=== PATIENT | female | born 1965 | race Caucasian/White ===

== ENCOUNTER 2017-04-15 14:34 | Observation (INO) | payer BC, OTHER ==
[2017-04-15] MEDS ORDERED: ONDANSETRON 4 MG/2 ML VIAL IVP ONE (15:09)
[2017-04-15] MEDS ORDERED: HYDROmorphONE/DILAUDID 1 MG/ML INJ IVP ONE (15:09)
--- NOTE | 2017-04-15 15:17 | EDPHY ---
H & P Time Seen by Provider: 04/15/17 14:46 HPI/ROS: CHIEF COMPLAINT: Left arm pain HISTORY OF PRESENT ILLNESS: This 51-year-old woman is transfer from [facility]. She has a history of CLL and has implanted ports in her legs through which she gets IVIG. She had 2 heart attacks in February which she describes as a result of getting continuous epinephrine infusions for her anaphylaxis to IVIG. She had ischemic stroke and had CVA in February with left- sided paralysis. She tells me she had a clot in her left arm and February but can't fully clarifying for me whether it was venous or arterial. She is on Coumadin and has factor 5 Leiden in addition to her CLL. She also has a pacemaker for neurocardiogenic syncope. She is visiting her daughter and lives in [place] and gets all of her care at the [facility]. She tells me that since Tuesday of this week she started having aching in her left arm. It exists from her hand all the way up to her shoulder and is associated with feeling cold and numb and having decreased motor function. Symptoms today were more severe and she had taken Percocet and was advised by her doctor to go to the hospital for evaluation. She was seen at [facility] and transferred here for further evaluation. Symptoms not associated with chest pain or shortness of breath. Not associated with recent trauma or injury to the arm. She apparently has an SVC clot is being treated with Coumadin. REVIEW OF SYSTEMS: Eye: no change in vision ENT: no sore throat Cardiac: no chest pain or syncope. The patient had negative coronary angiography when she had her heart attack Pulmonary: no cough or SOB Abdomen: no vomiting, diarrhea, abdominal pain Musculoskeletal: HPI Skin: no rash Neuro: no headache, has residual left-sided weakness from her previous stroke. Constitutional: no fever : no urinary symptoms A comprehensive 10 point review of systems is otherwise negative aside from elements mentioned in the history of present illness. PAST MEDICAL HISTORY: Hysterectomy, cholecystectomy, appendectomy, pacemaker, anaphylaxis, CLL, factor 5 Leiden, neurocardiogenic syncope, asthma, bilateral Vortex ports in her legs for IVIG infusions Social history: Visiting her daughter, from [place] General Appearance: Alert and conversant, cooperative. Eyes: No scleral icterus. ENT, Mouth: Normal mucous membranes. Respiratory: Normal respiratory effort, breath sounds equal, lungs are clear to auscultation. Cardiovascular: Regular rate and rhythm. No murmurs. She has 2+ radial pulses in both wrists. Gastrointestinal: Abdomen is soft and non tender. Neurological: Alert, cooperative, conversant, face symmetric. She can pull down her leg anxiety and pulled yhem back up using both arms so I can see her leg ports. 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 Skin: Warm and dry, no rashes. The left arm is not cool to the touch. The arm does not have discoloration. Musculoskeletal: No bony tenderness in left her right arm. Compartments are soft in both arms. No deformity. Psychiatric: Not agitated. Emergency Department course/MDM: Dilaudid 1 mg IV for pain. Plan for CT angiography of her aorta and upper extremity as well as ultrasound of the left upper extremity. Plan for admission for further evaluation treatment of this complicated patient. 1515: US per Jeremias negative for acute DVT in left arm. 1700: Results discussed with patient and family. Angiogram negative per Dr. Gannon for arterial occlusion in the left upper extremity. Pain is adequately controlled. Plan for admission and Neurology consultation. Considered alternative diagnosis including but not limited to cervical or thoracic spinal stenosis or epidural hematoma. However with pacemaker not able to emergently perform MRI. 1708: Discussed with Kandi and Mari Osorio, who will both see the patient tonight. 1725: Devon here in ED. Smoking Status: Never smoked Constitutional: Initial Vital Signs Temperature (C) 36.4 C 04/15/17 14:37 Heart Rate 82 04/15/17 14:37 Respiratory Rate 18 04/15/17 14:37 Blood Pressure 120/87 H 04/15/17 14:37 O2 Sat (%) 97 04/15/17 14:37 O2 Delivery Mode Nasal Cannula O2 (L/minute) 2 Allergies/Adverse Reactions: acetaminophen [From Vicodin] Allergy (Verified 04/15/17 14:40) apple Allergy (Verified 04/15/17 14:40) banana Allergy (Verified 04/15/17 14:40) cephalexin [From Keflex] Allergy (Verified 04/15/17 14:40) hydrocodone [From Vicodin] Allergy (Verified 04/15/17 14:40) latex Allergy (Verified 04/15/17 14:40) metronidazole [From Flagyl] Allergy (Verified 04/15/17 14:40) Sulfa (Sulfonamide Antibiotics) Allergy (Verified 04/15/17 14:40) sulfamethoxazole [From Bactrim] Allergy (Verified 04/15/17 14:40) trimethoprim [From Bactrim] Allergy (Verified 04/15/17 14:40) avacados Allergy (Uncoded 04/15/17 14:40) IVIG Allergy (Uncoded 04/15/17 14:40) Home Medications: Medication Instructions Recorded Albuterol [Proventil Inhaler HFA 1 - 2 puffs IH Q4H PRN 04/15/17 (*)] Benzonatate 200 mg PO DAILY PRN 04/15/17 CYCLOBENZAPRINE HCL [Flexeril] 5 mg PO Q6 PRN 04/15/17 Clopidogrel Bisulfate [Plavix (*)] 75 mg PO HS 04/15/17 Docusate Sodium [Colace 100 MG (*)] 100 mg PO DAILY PRN 04/15/17 EPINEPHRINE [EPIPEN] 0.3 mg SQ ONCE PRN 04/15/17 Fluticasone/Salmeter 250/50Mcg 1 puffs IH BID PRN 04/15/17 [Advair 250/50 (*)] Furosemide [Lasix 40 MG (*)] 40 mg PO DAILY 04/15/17 Herbals/Supplements -Info Only 1 ea PO HS 04/15/17 LORazepam [Ativan (*)] 1 mg PO DAILY 04/15/17 LORazepam [Ativan (*)] 2 mg PO HS 04/15/17 Levothyroxine [Synthroid 112 mcg 112 mcg PO DAILY06 04/15/17 (*)] Losartan Potassium [Cozaar 50 mg 50 mg PO DAILY 04/15/17 (*)] Montelukast Sodium [Singulair 10 10 mg PO HS 04/15/17 mg (*)] Ondansetron Odt [Zofran Odt 4 mg 4 - 8 mg PO Q4 PRN 04/15/17 (*)] Sennosides [Senokot] 8.6 mg PO Q12 PRN 04/15/17 Warfarin Sodium [Coumadin 1MG (*)] 2 mg PO MOTUWEFR 12/29/17 Warfarin Sodium [Coumadin 5MG (*)] 5 mg PO HS 04/15/17 diphenhydrAMINE [Benadryl 25 MG 25 mg PO DAILY 04/15/17 (*)] oxyCODONE/APAP 5/325 [Percocet 1 - 2 tab PO Q6H PRN 04/15/17 5/325 (*)] rOPINIRole HCL [Requip] 3 mg PO HS 04/15/17 traMADol [Ultram 50 mg (*)] 50 mg PO Q4 PRN 04/15/17 traZODone [traZODONE 100MG (*)] 100 mg PO HS 04/15/17 valACYclovir [Valtrex (*)] 1,000 mg PO DAILY PRN 04/15/17 Medical Decision Making - Diagnostics EKG Interpretation: 12-lead EKG interpreted by me; official reading is in trace master. My interpretation is atrial paced rhythm at rate of 81 with left axis. Imaging Results: Imaging Impressions Extremity Venous Study 04/15/17 15:08 Impression: 1. Echogenic material which appears adherent to an indwelling pacemaker lead in the left subclavian vein may represent lead-associated nonocclusive thrombus. 2. Decreased pulsatility of flow within the left internal jugular and brachycephalic veins is of uncertain clinical significance but may indicate a more central stenosis. Dr. Mcdowell discussed these findings by telephone with HOLLEY GLOVER on 2016 at 16:17. Differential Diagnosis: Differential for left arm pain considered including but not limited to arterial occlusion, DVT, aortic dissection, neurologic peripheral neuropathy, ischemic stroke, fracture, infection, compartment syndrome. - Data Points Laboratory Results: Laboratory Results 04/15/17 15:18 04/15/17 15:18 04/15/17 04/15/17 04/15/17 15:18 15:18 15:18 WBC 6.17 10^3/uL 10^3/uL (3.80-9.50) RBC 4.07 10^6/uL L 10^6/uL (4.18-5.33) Hgb 10.8 g/dL L g/dL (12.6-16.3) POC Hgb Hct 31.9 % L % (38.0-47.0) POC Hct MCV 78.4 fL L fL (81.5-99.8) MCH 26.5 pg L pg (27.9-34.1) MCHC 33.9 g/dL g/dL (32.4-36.7) RDW 14.5 % % (11.5-15.2) Plt Count 219 10^3/uL 10^3/uL (150-400) MPV 12.0 fL H fL (8.7-11.7) Neut % (Auto) 66.6 % % (39.3-74.2) Lymph % (Auto) 22.4 % % (15.0-45.0) Buchanan % (Auto) 6.6 % % (4.5-13.0) Eos % (Auto) 3.6 % % (0.6-7.6) Baso % (Auto) 0.6 % % (0.3-1.7) Nucleat RBC Rel Count 0.0 % % (0.0-0.2) Absolute Neuts (auto) 4.11 10^3/uL 10^3/uL (1.70-6.50) Absolute Lymphs (auto) 1.38 10^3/uL 10^3/uL (1.00-3.00) Absolute Monos (auto) 0.41 10^3/uL 10^3/uL (0.30-0.80) Absolute Eos (auto) 0.22 10^3/uL 10^3/uL (0.03-0.40) Absolute Basos (auto) 0.04 10^3/uL 10^3/uL (0.02-0.10) Absolute Nucleated RBC 0.00 10^3/uL 10^3/uL (0-0.01) Immature Gran % 0.2 % % (0.0-1.1) Immature Gran # 0.01 10^3/uL 10^3/uL (0.00-0.10) PT 24.1 SEC H SEC (12.0-15.0) INR 2.16 H (0.83-1.16) APTT 32.1 SEC SEC (23.0-38.0) POC Sodium Sodium 142 mEq/L mEq/L (134-144) POC Potassium Potassium 3.6 mEq/L mEq/L (3.5-5.2) POC Chloride Chloride 103 mEq/L mEq/L (97-110) Carbon Dioxide 23 mEq/l mEq/l (22-31) Anion Gap 16 mEq/L mEq/L (8-16) POC BUN BUN 15 mg/dL mg/dL (7-23) Creatinine 0.8 mg/dL mg/dL (0.6-1.0) POC Creatinine Estimated GFR > 60 Glucose 123 mg/dL H mg/dL (70-100) POC Glucose Calcium 10.4 mg/dL mg/dL (8.5-10.4) Troponin I < 0.012 ng/mL ng/mL (0.000-0.034) 04/15/17 15:15 WBC RBC Hgb POC Hgb 11.2 gm/dL L gm/dL (12.6-16.3) Hct POC Hct 33 % L % (38-47) MCV MCH MCHC RDW Plt Count MPV Neut % (Auto) Lymph % (Auto) Buchanan % (Auto) Eos % (Auto) Baso % (Auto) Nucleat RBC Rel Count Absolute Neuts (auto) Absolute Lymphs (auto) Absolute Monos (auto) Absolute Eos (auto) Absolute Basos (auto) Absolute Nucleated RBC Immature Gran % Immature Gran # PT INR APTT POC Sodium 141 mEq/L mEq/L (134-144) Sodium POC Potassium 3.3 mEq/L mEq/L (3.3-5.0) Potassium POC Chloride 102 mEq/L mEq/L (97-110) Chloride Carbon Dioxide Anion Gap POC BUN 16 mg/dL mg/dL (7-23) BUN Creatinine POC Creatinine 0.9 mg/dL mg/dL (0.6-1.0) Estimated GFR Glucose POC Glucose 127 mg/dL H mg/dL (70-100) Calcium Troponin I Medications Given: Discontinued Medications Hydromorphone HCl (Dilaudid) 1 mg IVP EDNOW ONE Stop: 04/15/17 15:10 Last Admin: 04/15/17 15:22 Dose: 1 mg Ondansetron HCl (Zofran) 4 mg IVP EDNOW ONE Stop: 04/15/17 15:10 Last Admin: 04/15/17 15:20 Dose: 4 mg Promethazine HCl (Phenergan) 6.25 mg IVP EDNOW ONE Stop: 04/15/17 16:26 Last Admin: 04/15/17 16:30 Dose: 6.25 mg Point of Care Test Results: 04/15/17 15:15 POC Sodium 141 POC Potassium 3.3 POC Chloride 102 POC BUN 16 POC Creatinine 0.9 POC Glucose 127 H Departure - Departure Disposition: [facility] Inpatient Acute Clinical Impression: Left arm pain Condition: Good Referrals: SERGEY NICOLAS [Other] - As per Instructions
--- NOTE | 2017-04-15 15:26 | CPEKG ---
Heart Rate: 81 RR Interval: 741 P-R Interval: 160 QRSD Interval: 92 QT Interval: 392 QTC Interval: 455 P Willcox: 60 QRS Willcox: -24 T Wave Willcox: 12 EKG Severity - ABNORMAL ECG - EKG Impression: ATRIAL-PACED COMPLEXES EKG Impression: BORDERLINE LEFT AXIS DEVIATION Electronically Signed By: Frederic Sanders 15-Apr-2017 15:29:45
[2017-04-15 15:28] LABS: PLATELET COUNT 219 10^3/uL (150-400)
[2017-04-15] MEDS ORDERED: IOPAMIDOL (ISOVUE 370) 100 ML BTL IV ONE (15:46)
[2017-04-15 15:49] LABS: INR 2.16 (0.83-1.16); PROTIME(PATIENT) 24.1 SEC (12.0-15.0)
[2017-04-15] MEDS ORDERED: PROMETHAZINE HCL 25 MG/ML INJ ONE (16:25)
[2017-04-15] MEDS ORDERED: PROMETHAZINE HCL 25 MG/ML INJ IVP ONE (16:25)
--- NOTE | 2017-04-15 18:38 | GCON ---
[f rep st] CONSULTATION NEUROLOGIC CONSULTATION REFERRING PHYSICIAN: Frederic Sanders MD The patient will be admitted to observation status under Steve Chau MD. HISTORY: The patient is a 51-year-old woman who has an extremely complex history dating back many ye ars. She has a history of neurocardiogenic syncope for which she says she got a pacemaker some 10 ye ars ago because she could not tolerate medications due to severe reactions and history of recurrent a naphylactic reactions. About 8 years ago, she was diagnosed with CLL and could not tolerate most of the treatment she says. After many attempts at different therapies, she is currently receiving inter mittent treatments with plasmapheresis and is due for her next treatment in another week. She lives in [place] and that is where all of her care is. She has a history of recurrent TIAs. 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 That settled down. However, she says that in the last 48 hours she has had rather intractable pain in the left arm. It has fluctuated a bit, but has been extreme pain with tea rfulness and needing to try to pace around to tolerate it. The original pain 3 weeks ago was a hyper sensitivity syndrome. That seems to be a bit less now and when it comes on, it is more of a diffuse aching intense pain. She has received some Dilaudid here and that has cut the pain down significantl y to what she called a moderate level. She was not on any other treatment for it. She has had a wor kup that does not reveal any evidence of a clot in that arm. She had developed a DVT in the left upp er extremity a month ago and is on Coumadin. She has had previous ports. She said she had a myocard ial infarction within a week of the stroke. She has not noted any prominent headache. No change in her left lower extremity or her face. No vis ual disturbances. PAST MEDICAL HISTORY: As outlined above. She also has a history of Factor V Leiden mutation. There is a prior history of appendectomy and the pacemaker placed in the setting of neurocardiogenic synco pe. Asthma. She has bilateral Vortex ports in her legs for her plasmapheresis. She says she could not tolerate IVIG in the past. PHYSICAL EXAMINATION: VITAL SIGNS: The patient is alert with a pulse of 82, temperature 36.4, blood pressure 120/87, respiratory rate 18. GENERAL: She is well developed, in no acute distress. No ra sh or swelling of the left upper extremity. NEUROLOGIC: The patient is fully oriented with no obvio us cognitive impairment. Pupils are 2 mm and reactive. Extraocular movements are intact. No visual field loss. Extraocular movements are intact. Normal facial sensation and strength. Motor exam re veals variable degrees of effort in testing, making it hard to know precisely her degree of weakness, but it is in the 4/5 range on the left side and better on the right. Sensation is diminished throug hout the left upper extremity for all modalities, but she does not have allodynia. The reflexes are hypoactive throughout with no Babinski signs. She has had an ultrasound of the left upper extremity and does not see any evidence of a significant thrombus. There was some description of echogenic material adherent to the indwelling pacemaker lead in the left subclavian vein which might represent some lead associated nonocclusive thrombus. There was decreased pulsatility of flow within the left internal jugular and brachiocephalic veins of unce rtain clinical significance. The patient says that she has some vena caval thrombus, but they have j ust been monitoring that. IMPRESSION: The patient most likely is experiencing a central pain syndrome from her reported stroke about a month ago. Interestingly, I asked if they actually visualized a stroke and she said they co uld not see it and they had a hard time actually seeing strokes in the past. She cannot get an MRI b ecause of the pacemaker, so small ischemic changes might be missed by CT. I am suspecting this was p robably a right thalamic event the way she describes the left-sided findings of face, arm and leg and the central pain syndrome, but I do not know that to be true other than just a theory. In any case, she is doing better now. I do not think she has a new stroke. I do not think she needs brain imagi ng to be repeated. As I am examining her, she says really the weakness is not any worse than it was, but it is the pain that is limiting her mobility and it is significantly better after her IV pain me dicine. I am recommending we add gabapentin which she says she has safely taken in the past. I will start her on 300 mg b.i.d. She will likely be able to be discharged within 24 hours and head back t [facility] where she is getting all the rest of her care. Total unit time of 70 minutes. /[id number]/MODL
[2017-04-15] MEDS ORDERED: ONDANSETRON DISINTEGRATING 4 MG TAB PO PRN (20:33)
[2017-04-15] MEDS ORDERED: oxyCODONE IR 5 MG TAB PO PRN (20:33)
[2017-04-15] MEDS ORDERED: ONDANSETRON 4 MG/2 ML VIAL IVP PRN (20:33)
[2017-04-15] MEDS ORDERED: ACETAMINOPHEN 325 MG TAB PO PRN (20:33)
[2017-04-15] MEDS: OXYCODONE/APAP 5/325 TAB PO PRN (20:55)
[2017-04-15] MEDS: GABAPENTIN 300 MG CAP PO SCH (20:55)
[2017-04-15] MEDS ORDERED: CLOPIDOGREL BISULFATE 75 MG TAB PO SCH (21:00)
[2017-04-15] MEDS ORDERED: traZODone 100 MG TAB PO SCH (21:00)
[2017-04-15] MEDS ORDERED: LORazepam 1 MG TAB PO SCH (21:00)
[2017-04-15] MEDS ORDERED: WARFARIN SODIUM 5 MG TAB PO SCH (21:00)
[2017-04-15] MEDS ORDERED: MONTELUKAST SODIUM 10 MG TAB PO SCH (21:00)
[2017-04-15] MEDS ORDERED: ALBUTEROL 200 PUFFS/18 GM MDI IH PRN (21:09)
[2017-04-15] MEDS ORDERED: valACYclovir 500 MG TAB PO PRN (21:09)
[2017-04-15] MEDS ORDERED: traMADol 50 MG TAB PO PRN (21:09)
[2017-04-15] MEDS ORDERED: FLUTICASONE/SALMETER 250/50MCG DISKUS IH PRN (21:09)
--- NOTE | 2017-04-15 21:14 | GHP ---
[f rep st] HISTORY AND PHYSICAL DATE OF ADMISSION: 04/15/2017 CHIEF COMPLAINT: Left arm pain. HISTORY OF PRESENT ILLNESS: This is a 51-year-old female with a complicated medical history. She lorenzo s a history of CLL and gets plasmapheresis through groin ports on a regular basis. She also has a hi story of TIAs and then suffered a stroke several weeks ago. That stroke affected her left side and c auses a significant amount of pain in her leg and arm. However, this improved. She is visiting from [place], [place], and was up at [place] for the last several days. She has been over exerting hersel f to certain extent. Over the last couple days, she has had worsening left arm pain which is the lopez e in character as her stroke pain but much more severe. She called her primary care doctor who told her that she needed to rule out an arterial clot since she has had those in the past. She has receiv ed several doses of Dilaudid and her pain is a little bit better. She is not having any chest pain. No fevers or chills. No headache. REVIEW OF SYSTEMS: A 10-point review of systems was obtained and other than as stated was negative. PAST MEDICAL HISTORY: 1. Previous TIA and recent stroke affecting her left side. 2. History of factor V Leiden mutation with several different types of clots including a recent SVC clot. 3. CLL with plasmapheresis. 4. History of neurocardiogenic syncope in which she has a pacemaker. 5. History of takotsubo cardiomyopathy as well as ischemic cardiomyopathy. 6. Asthma. 7. Appendectomy. SOCIAL HISTORY: No smoking or alcohol. Lives in [place] with her . Her daughter is an oncolo gy nurse up at [place]. FAMILY HISTORY: Multiple family members with clotting disorder as well as stroke. PHYSICAL EXAMINATION: VITAL SIGNS: Afebrile, blood pressure is 113/76, heart rate 80, oxygen satura tion 96% on 2 L. GENERAL: No apparent distress. HEENT: Nonicteric sclerae. Extraocular movements in tact. Moist mucous membranes. NECK: Supple. No thyromegaly. LUNGS: Good effort. Clear to auscu ltation bilaterally. CARDIOVASCULAR: Regular rate and rhythm. No murmurs, gallops. ABDOMEN: Posi tive bowel sounds. Soft, nontender, nondistended. No hepatosplenomegaly. EXTREMITIES: No clubbing , cyanosis, or edema. On the right she has 2+ radial pulses. NEUROLOGIC: Alert and oriented x3. Jonathan dunlap does have some left arm weakness as well as lower left leg weakness. LABS: CBC shows mild anemia, otherwise normal. INR is 2.16. Chemistries normal. Ultrasound of the upper extremity shows some adherent material adjacent to the indwelling pacer in le ft subclavian vein and some decreased pulsatility of flow within the left internal jugular brachiocep halic but may indicate more central stenosis of that vein. Upper extremity CT shows no arterial thrombus. ASSESSMENT: This is a 51-year-old female presenting with left arm pain. It seems to be due to a esequiel tral pain syndrome from her previous stroke. PLAN: 1. Left arm pain. Neurology saw the patient already and believes that this may be central pain synd donavon due to her recent stroke. She states that the pain is very similar to her experience when she h ad the stroke. I think that the over exertion as well as the altitude and travel is probably exacerb ating these symptoms. She does not have an arterial clot. I think the likelihood of some type of sp inal cord issue is low as the quality of pain seemed to be more related to her previous stroke than a radicular type pain. Plan will be to observe her overnight. She has been started on gabapentin. W ill add some Percocet as needed. She is probably going to be discharged tomorrow. 2. History of factor V Leiden. Continue Coumadin. Her INR is therapeutic. 3. Chronic lymphocytic leukemia. Her white count is actually fairly normal. /[id number]/MODL
[2017-04-15] MEDS ORDERED: WARFARIN SODIUM 1 MG TAB PO SCH (21:15)
[2017-04-15] MEDS ORDERED: BENZONATATE 100 MG CAP PO PRN (21:30)
[2017-04-15] MEDS ORDERED: CYCLOBENZAPRINE 10 MG TAB PO PRN (22:00)
[2017-04-15] MEDS ORDERED: diphenhydrAMINE 25 MG CAP PO SCH (22:30)
[2017-04-15] MEDS ORDERED: PANTOPRAZOLE SODIUM 40 MG TAB PO SCH (22:30)
[2017-04-16] MEDS: OXYCODONE/APAP 5/325 TAB PO PRN ×2 (02:48→08:48)
[2017-04-16] MEDS ORDERED: LEVOTHYROXINE 112 MCG TAB PO SCH (06:00)
[2017-04-16 07:36] VITALS: PULSE 87; RESP 17; TEMP 97.9; O2SAT 94
--- NOTE | 2017-04-16 08:07 | NEUROPROG ---
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 No evidence of new stroke. With pain under control now, she could be discharge on short course of oxycodone if needed and gabapentin 300mg BID. She is to follow up back in [place], [place] where she lives. Call for any questions. Total unit time of 15 minutes Subjective: Pt reports that the left arm is less painful. She took two and then one Percocet last evening and was able to rest. There is no new weakness or other new symptoms. Objective: Vital Signs Temp Pulse Resp BP Pulse Ox 36.6 C 87 17 101/64 94 04/16/17 07:34 04/16/17 07:34 04/16/17 07:34 04/16/17 07:34 04/16/17 07:34 04/15/17 04/16/17 04/17/17 05:59 05:59 05:59 Intake Total 400 Output Total 2 Balance 398 PT 24.1 SEC (12.0-15.0) H 04/15/17 15:18 INR 2.16 (0.83-1.16) H 04/15/17 15:18 Left upper extremity power is about 4/5 with variable effort. No allodynia, but the sensation to touch is reduced Allergies/Adverse Reactions: acetaminophen [From Vicodin] Allergy (Verified 04/15/17 14:40) apple Allergy (Verified 04/15/17 14:40) banana Allergy (Verified 04/15/17 14:40) cephalexin [From Keflex] Allergy (Verified 04/15/17 14:40) hydrocodone [From Vicodin] Allergy (Verified 04/15/17 14:40) latex Allergy (Verified 04/15/17 14:40) metronidazole [From Flagyl] Allergy (Verified 04/15/17 14:40) Sulfa (Sulfonamide Antibiotics) Allergy (Verified 04/15/17 14:40) sulfamethoxazole [From Bactrim] Allergy (Verified 04/15/17 14:40) trimethoprim [From Bactrim] Allergy (Verified 04/15/17 14:40) avacados Allergy (Uncoded 04/15/17 14:40) IVIG Allergy (Uncoded 04/15/17 14:40)
[2017-04-16] MEDS: GABAPENTIN 300 MG CAP PO SCH (08:36)
[2017-04-16 08:39] VITALS: BP 106/69
[2017-04-16] MEDS ORDERED: diphenhydrAMINE 25 MG CAP PO SCH (09:00)
[2017-04-16] MEDS ORDERED: FUROSEMIDE 40 MG TAB PO SCH (09:00)
[2017-04-16] MEDS ORDERED: LOSARTAN POTASSIUM 50 MG TAB PO SCH (09:00)
[2017-04-16] MEDS ORDERED: LORazepam 1 MG TAB PO SCH (09:00)
--- NOTE | 2017-04-16 10:05 | ASMTCMCOM ---
CM Note CM Note Notes: 04/06/2017 Case Management Note Reviewed chart, spoke w/RN. Pt admitted for arm pain after visit to Jessie Schmidt from [facility]. There are no PT or OT evals ordered. There are no case management d/c needs identified d/t pt age,marital status and activity levels prior to admission. Case Management d/c poc: independent with family support and follow up as directed. Case Management available if needs change. Date Signed: 04/16/2017 10:04 AM Electronically Signed By:Jessica Jimenez RN
--- NOTE | 2017-04-16 11:57 | GDS ---
[f rep st] DISCHARGE SUMMARY DISCHARGE DIAGNOSES: 1. Left arm pain, thought to be due to central pain syndrome from previous cerebrovascular accident. 2. History of factor V Leiden mutation. 3. CLL. 4. History neurocardiogenic syncope with pacemaker placement. 5. History of takotsubo cardiomyopathy. 6. Asthma. CONSULTANTS: Dr. Juan Carlos Osorio, Associate of Neurology. HOSPITAL COURSE AND STAY BY PROBLEM: Left arm pain: The patient was admitted to the hospital, where upper extremity CT and ultrasound were done, which did not reveal any obvious etiology for her pain. Dr. Osorio thought her pain was most likely due to a central pain syndrome, given her history of previous CVA. The patient was started on Neurontin and continued on Percocet. On day of discharge, her pain is con trolled. PHYSICAL EXAM: VITAL SIGNS: On day of discharge, blood pressure 106/69, pulse of 87 respiratory rat e 17, O2 sat 94% on room air. Temperature afebrile. GENERAL: No acute distress. PERTINENT LABS AND STUDIES DONE THIS HOSPITAL STAY: Upper extremity CT angio done 04/15/2017. Refer to report for details. DISCHARGE MEDICATIONS: Please refer to discharge medication reconciliation in [facility] for full deta ils, as well as a preliminary list. New medications on hospital discharge: Percocet 5/325 one to two tablets p.o. q.4 hours p.r.n. pain, prescription for #20 was given; Neurontin 300 mg p.o. b.i.d., prescription for #60 was given. All other medications were continued at her usual home dosages. DISCHARGE INSTRUCTIONS: The patient will be discharged from the hospital, where she should follow up with her primary care provider and neurologist back in [place]. She should seek medical attention if h er symptoms recur or worsen, or if she has any new focal neurologic deficits. /[id number]/MODL
--- NOTE | 2017-04-16 14:00 | ASDISCHSUM ---
Discharge Information Plan Status:Home with No Needs Medically Cleared to Leave: Discharge Date:04/16/2017 12:30 PM CM D/C Disposition:Home, Routine, Self-Care ADT D/C Disposition:Home, Routine, Self-Care Projected Discharge Date:04/16/2017 12:30 PM Transportation at D/C:Self Discharge Delay Reason: Follow-Up Date:04/16/2017 12:30 PM Discharge Slot: Final Diagnosis: Placement Information Patient Contact Information Contact Name:BLUEGHASSANFAY Relationship: [address] Work Phone: City:[place] Alternate Phone: [facility]/Zip Code:[place] [address] Email: Financial Information Financial Class:HMO and PPO Plans Primary Plan Desc: OUT OF STATE PPO Primary Plan Number:[id number] Secondary Plan Desc:MEDICARE OUTPATIENT Secondary Plan Number:[id number] Assessment Information LACE LACE Acuity / Level of Care Answers: Was the patient admitted to hospital via the emergency department? Yes: Comorbidities - select Answers: Any tumor (including all that apply lymphoma or leukemia) Emergency dept visits in Answers: 1 last 6 months Score: 6 Date Signed: 04/15/2017 05:33 PM Electronically Signed By:Shelby Fair RN [facility] CM Progress Note CM Note CM Note Notes: 04/06/2017 Case Management Note Reviewed chart, spoke w/RN. Pt admitted for arm pain after visit to [facility]. There are no PT or OT evals ordered. There are no case management d/c needs identified d/t pt age,marital status and activity levels prior to admission. Case Management d/c poc: independent with family support and follow up as directed. Case Management available if needs change. Date Signed: 04/16/2017 10:04 AM Electronically Signed By:Jessica Jimenez RN Intervention Information
== END 2017-04-16 12:30 | disposition home or self-care (01) ==
LOC: F2W 18:43
PROVIDERS: ADMIT Internal Medicine; ATTEND Internal Medicine
DX: M79.602 Pain in left arm (principal); I69.354 Hemiplegia and hemiparesis following cerebral infarction affecting left non-dominant side; C91.10 Chronic lymphocytic leukemia of B-cell type not having achieved remission; J45.909 Unspecified asthma, uncomplicated; Z86.2 Personal history of diseases of the blood and blood-forming organs and certain disorders involving the immune mechanism; Z95.0 Presence of cardiac pacemaker
CPT/HCPCS: 73206; 93005; 93971; 96374; 96375; 99285; G0378; 82947-QW; J1170; J2405; J2550; Q9967